=== PATIENT | female | born 1990 | race Caucasian/White ===

== ENCOUNTER 2020-08-09 17:43 | Outpatient (CLI) | payer OTHER | END 2020-08-09 17:44 | disposition home or self-care (01) | LOC: COV 17:43 | PROVIDERS: ATTEND Family Medicine | DX: M79.10 Myalgia, unspecified site (principal); R53.83 Other fatigue; R19.7 Diarrhea, unspecified; J34.89 Other specified disorders of nose and nasal sinuses; R11.2 Nausea with vomiting, unspecified; Z20.822 Contact with and (suspected) exposure to COVID-19 ==